=== PATIENT | female | born 1975 | race Caucasian/White ===

== ENCOUNTER 2019-01-04 15:18 | Emergency (ER) | payer MEDICARE, MEDICAID ==
--- NOTE | 2019-01-04 18:57 | CT ---
CT OF THE BRAIN WITHOUT CONTRAST: 01/04/[address] shows normal sized ventricles with no shift. No intracranial bleeding or extra-axial hematoma was seen. There is no sign of mass, edema, or stroke. I would note that there is more cereb ellar atrophy than would be expected for the patient's age. The calvarium appears intact and there is no air fluid level in the sphenoid sinus. A small soft tissue hematoma is seen over the left frontal bone and the supraorbital region. IMPRESSION: No acute intracranial findings. See comments above. POS: HOME
--- NOTE | 2019-01-04 18:59 | CT ---
CT OF THE FACIAL BONES: 01/04/[address] of the facial bones was performed following trauma. Axial slices were acquired followed by coronal and sagittal reconstructions. No facial fractures were seen. The orbital rims, nasal bones, zygomatic arches, and mandible all appe ared intact. The retro-orbital areas appear normal. The paranasal sinuses are clear except for some m inor mucosa thickening in some of the anterior ethmoid air cells. A small amount of left periorbital swelling is noted, mostly in the supraorbital region. IMPRESSION: No acute traumatic fracture. POS: HOME
== END 2019-01-04 16:18 | disposition home or self-care (01) ==
LOC: BURERS 15:18
DX: S00.83XA Contusion of other part of head, initial encounter (principal); S05.12XA Contusion of eyeball and orbital tissues, left eye, initial encounter; W18.30XA Fall on same level, unspecified, initial encounter
CPT/HCPCS: 70450; 70486

== ENCOUNTER 2020-01-16 21:55 | Emergency (ER) | payer MEDICAID, MEDICARE | END 2020-01-16 23:00 | disposition home or self-care (01) | LOC: BURERS 21:55 | DX: S01.01XA Laceration without foreign body of scalp, initial encounter (principal); W01.198A Fall on same level from slipping, tripping and stumbling with subsequent striking against other object, initial encounter | CPT/HCPCS: 12001 ==